=== PATIENT | female | born 1960 | race Caucasian/White ===

== ENCOUNTER 2021-07-30 12:28 | Emergency (ER) | payer OTHER ==
[~2021-07-30] VITALS: Ht 154.9 cm; Wt 47.7 kg
[2021-07-30] MEDS: LORazepam 1 MG TABLET PO ONE ×2 (13:34→14:25)
[2021-07-30 14:16] VITALS: BP 134/88
== END 2021-07-30 15:44 | disposition home or self-care (01) ==
LOC: EMS 12:33
DX: F41.9 Anxiety disorder, unspecified (principal); F32.9 Major depressive disorder, single episode, unspecified; F17.210 Nicotine dependence, cigarettes, uncomplicated
CPT/HCPCS: 93005; 99283